=== PATIENT | female | born 1965 | race American Indian/Alaskan Native ===

== ENCOUNTER 2017-06-06 19:46 | Emergency (ER) | payer BC, OTHER ==
[2017-06-06 20:38] VITALS: BP 154/88
--- NOTE | 2017-06-06 20:40 | EDM.PDOC ---
ED HPI GENERAL MEDICAL PROBLEM - General Chief Complaint: ENT Problem Stated Complaint: SORE THROAT, [id number] Time Seen by Provider: 06/06/17 21:00 Source of Information: Reports: Patient History Limitations: Reports: No Limitations - History of Present Illness INITIAL COMMENTS - FREE TEXT/NARRATIVE: c/o sore throat x 3 days, no fever or cough, Spouse being seen so thought she should also. Duration: Day(s): Location: Reports: Other Severity: Mild Throat Pain Score (Numeric/FACES): 5 - Related Data Allergies Allergy/AdvReac Type Severity Reaction Status Date / Time No Known Allergies Allergy Verified 06/06/17 20:27 Home Meds: Home Meds . [No Known Home Meds] 06/06/17 [History] Past Medical History [employer] History: Reports: Other (See Below) Other OB/BYN History: cervical cancer Oncologic (Cancer) History: Reports: Cervix - Past Surgical History Female Surgical History: Reports: Other (See Below) Other Female Surgeries/Procedures: partial hysterectomy Social & Family History - Tobacco Use Smoking Status *Q: Current Every Day Smoker Years of Tobacco use: 10 Packs/Tins Daily: 0.2 Second Hand Smoke Exposure: Yes - Alcohol Use Days Per Week of Alcohol Use: 1 Number of Drinks Per Day: 1 Total Drinks Per Week: 1 - Recreational Drug Use Recreational Drug Use: No ED ROS ENT - Review of Systems Review Of Systems: ROS reveals no pertinent complaints other than HPI. ED EXAM, ENT - Physical Exam Exam: See Below Exam Limited By: No Limitations General Appearance: Alert, No Apparent Distress Eye Exam: Bilateral Eye: EOMI Ears: Normal External Exam, Normal TMs Nose: Normal Inspection Mouth/Throat: Normal Inspection, Normal Gums, Normal Lips, Normal Oropharynx, Normal Teeth, Bleeding Head: Atraumatic Neck: Normal Inspection Respiratory/Chest: No Respiratory Distress GI/Abdominal: Normal Bowel Sounds, Soft, Non-Tender (Female) Exam: Normal External Exam, Normal Speculum Exam Rectal (Female) Exam: Normal Exam, Normal Rectal Tone Back: No: CVA Tenderness (L), Muscle Spasm Course - Vital Signs Last Recorded V/S: Last Vital Signs Temp 98 F 06/06/17 20:27 Pulse 78 06/06/17 20:27 Resp 20 06/06/17 20:27 BP 154/88 H 06/06/17 20:27 Pulse Ox 99 06/06/17 20:27 - Orders/Labs/Meds Orders: Active Orders 24 hr Category Date Time Status CULTURE STREP A CONFIRMATION [] Stat Lab 06/06/17 20:15 Results STREP SCRN A RAPID W CULT CONF [] Stat Lab 06/06/17 20:15 Results Meds: Medications Discontinued Medications Generic Name Dose Route Start Last Admin Trade Name Freq PRN Reason Stop Dose Admin Ketorolac Tromethamine 30 mg 06/06/17 20:53 Toradol IVPUSH 06/06/17 20:54 ONETIME ONE Phenazopyridine HCl 190 mg 06/06/17 20:54 Urinary Pain Relief PO 06/06/17 20:55 ONETIME ONE Departure - Departure Time of Disposition: 20:39 Disposition: Home, Self-Care 01 Condition: Good Clinical Impression: Pharyngitis Qualifiers: Pharyngitis/tonsillitis etiology: unspecified etiology Qualified Code(s): J02.9 - Acute pharyngitis, unspecified - Discharge Information Referrals: Chuck Corbin [Primary Care Provider] - Forms: ED Department Discharge Additional Instructions: increase fluids alternate tylenol and ibuprofen for discomfort - My Orders Last 24 Hours: My Active Orders 06/06/17 20:15 CULTURE STREP A CONFIRMATION [RM] Stat STREP SCRN A RAPID W CULT CONF [] Stat - Assessment/Plan Last 24 Hours: My Active Orders 06/06/17 20:15 CULTURE STREP A CONFIRMATION [RM] Stat STREP SCRN A RAPID W CULT CONF [] Stat
[2017-06-06] MEDS ORDERED: Ketorolac 30 MG/ML SDV IVPUSH ONE (20:53)
[2017-06-06] MEDS ORDERED: Phenazopyridine 95 MG Tab PO ONE (20:54)
== END 2017-06-06 21:01 | disposition home or self-care (01) ==
LOC: DL.ED 19:46
DX: J02.9 Acute pharyngitis, unspecified (principal); F17.210 Nicotine dependence, cigarettes, uncomplicated; Z90.710 Acquired absence of both cervix and uterus; Z85.41 Personal history of malignant neoplasm of cervix uteri
CPT/HCPCS: 87081; 87430; 99283

== ENCOUNTER 2019-11-03 18:01 | Emergency (ER) | payer BC, OTHER ==
[2019-11-03] MEDS ORDERED: Benzonatate 100 MG Cap PO ONE (18:02)
[2019-11-03] MEDS ORDERED: Levofloxacin 500 MG Tab PO ONE (18:02)
[2019-11-03 18:13] VITALS: BP 155/78; PULSE 102
[2019-11-03] MEDS ORDERED: cefTRIAXone 1 GM, Lidocaine 1% 2.1 ML IM ONE ×2 (19:46)
[2019-11-03] MEDS ORDERED: Benzonatate 100 MG Cap ONE (19:53)
[2019-11-03] MEDS ORDERED: Levofloxacin 500 MG Tab ONE (19:53)
--- NOTE | 2019-11-03 19:59 | EDM.PDOC ---
ED HPI GENERAL MEDICAL PROBLEM - General Chief Complaint: General Stated Complaint: ACHY, NOT FEELING GOOD Time Seen by Provider: 11/03/19 19:20 Source of Information: Reports: Patient History Limitations: Reports: No Limitations - History of Present Illness INITIAL COMMENTS - FREE TEXT/NARRATIVE: Cough fever for approximately one week, UTI sx since weekend, frequency urgency. Left flank pain. Hx UTI's in past. No vomiting. No flu vaccine, Lots of family ill with respiratory sx. 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 Musculoskeletal History: Reports: None Neurological History: Reports: None Psychiatric History: Reports: None Endocrine/Metabolic History: Reports: Other (See Below) Other Endocrine/Metabolic History: thyroid problems Hematologic History: Reports: None Immunologic History: Reports: None Oncologic (Cancer) History: Reports: Cervix Dermatologic History: Reports: None - Infectious Disease History Infectious Disease History: Reports: None - Past Surgical History Head Surgeries/Procedures: Reports: None Female Surgical History: Reports: Other (See Below) Other Female Surgeries/Procedures: partial hysterectomy Social & Family History - Family History Family Medical History: Noncontributory - Tobacco Use Smoking Status *Q: Current Every Day Smoker Years of Tobacco use: 20 Packs/Tins Daily: 0.5 - Caffeine Use Caffeine Use: Reports: Coffee - Recreational Drug Use Recreational Drug Use: No ED ROS GENERAL - Review of Systems Review Of Systems: Comprehensive ROS is negative, except as noted in HPI. ED EXAM, GENERAL - Physical Exam Exam: See Below Exam Limited By: No Limitations General Appearance: Alert, Mild Distress Eye Exam: Bilateral Eye: EOMI Ears: Normal External Exam Ear Exam: Bilateral Ear: TM Dull Nose: Normal Inspection Throat/Mouth: Normal Voice, Inflammation Neck: Normal Inspection Respiratory/Chest: No Respiratory Distress, Other (harsh bronchial cough) Cardiovascular: Normal Peripheral Pulses, Regular Rate, Rhythm GI/Abdominal: Normal Bowel Sounds Back Exam: CVA Tenderness (L). No: CVA Tenderness (R) Extremities: Normal Inspection Neurological: Alert, Oriented, Normal Cognition Psychiatric: Normal Affect Skin Exam: Warm, Dry, Intact, Normal Color Course - Vital Signs Last Recorded V/S: Last Vital Signs Temp 98.6 F 11/03/19 18:11 Pulse 102 H 11/03/19 18:11 Resp 22 H 11/03/19 18:11 BP 155/78 H 11/03/19 18:11 Pulse Ox 96 11/03/19 18:11 - Orders/Labs/Meds Orders: Active Orders 24 hr Category Date Time Status CXR [Chest 1V Frontal] [CR] Urgent Exams 11/03/19 19:46 Taken CULTURE URINE [RM] Stat Lab 11/03/19 18:20 Received Labs: Laboratory Tests 11/03/19 Range/Units 18:20 Urine Color Yellow (YELLOW) Urine Appearance Slightly cloudy (CLEAR) Urine pH 6.0 (5.0-9.0) Ur Specific [place] 1.025 (1.005-1.030) Urine Protein Negative (NEGATIVE) Urine Glucose (UA) Negative (NEGATIVE) Urine Ketones Negative (NEGATIVE) Urine Occult Blood Trace-intact H (NEGATIVE) Urine Nitrite Positive H (NEGATIVE) Urine Bilirubin Negative (NEGATIVE) Urine Urobilinogen 1.0 (0.2-1.0) mg/dL Ur Leukocyte Esterase Negative (NEGATIVE) Urine RBC 0-5 /HPF Urine WBC 0-5 (0-5/HPF) /HPF Ur Epithelial Cells Few (NOT SEEN) /HPF Amorphous Sediment Few (NOT SEEN) /HPF Urine Bacteria Moderate H (0-FEW/HPF) /HPF Urine Mucus Rare (NOT SEEN) /LPF Meds: Medications Discontinued Medications Generic Name Dose Route Start Last Admin Trade Name Freq PRN Reason Stop Dose Admin Benzonatate Confirm 11/03/19 19:53 11/03/19 20:23 Tessalon Perles Administered 11/03/19 19:54 Not Given Dose 1,000 mg .ROUTE .STK-MED ONE Ceftriaxone Sodium 1 gm/ 0 gm 11/03/19 19:46 11/03/19 19:58 Lidocaine HCl 2.1 ml IM 11/03/19 19:47 1 inj ONETIME ONE Administration Levofloxacin Confirm 11/03/19 19:53 11/03/19 20:23 Levaquin Administered 11/03/19 19:54 Not Given Dose 1,000 mg .ROUTE .STK-MED ONE Departure - Departure Time of Disposition: 19:56 Disposition: Home, Self-Care 01 Condition: Good Clinical Impression: Bronchitis UTI (urinary tract infection) Qualifiers: Urinary tract infection type: acute cystitis Hematuria presence: with hematuria Qualified Code(s): N30.01 - Acute cystitis with hematuria - Discharge Information *PRESCRIPTION DRUG MONITORING PROGRAM REVIEWED*: No *COPY OF PRESCRIPTION DRUG MONITORING REPORT IN PATIENT EDNA: No Instructions: Acute Bronchitis, Adult, [id number], Urinary Tract Infection, Adult [facility] - Forms: ED Department Discharge Care Plan Goals: levaquin 500mg one daily tessalon 200mg every 8 hours as needed for cough increase fluids robitussin per package instructions humidifier follow up if symptoms worsen Sepsis Event Note - Evaluation Sepsis Screening Result: No Definite Risk - Focused Exam Vital Signs: Vital Signs Temp Pulse Resp BP Pulse Ox 11/03/19 18:11 98.6 F 102 H 22 H 155/78 H 96 Date Exam was Performed: 11/04/19 Time Exam was Performed: 00:14 - My Orders Last 24 Hours: My Active Orders 11/03/19 19:46 CXR [Chest 1V Frontal] [CR] Urgent - Assessment/Plan Last 24 Hours: My Active Orders 11/03/19 19:46 CXR [Chest 1V Frontal] [CR] Urgent
== END 2019-11-03 20:22 | disposition home or self-care (01) ==
LOC: DL.ED 18:01
DX: J40 Bronchitis, not specified as acute or chronic (principal); N30.01 Acute cystitis with hematuria; F17.210 Nicotine dependence, cigarettes, uncomplicated; Z79.899 Other long term (current) drug therapy
CPT/HCPCS: 71045; 81001; 87086; 87088; 87186; 87804; 96372; 99283; J0696; J2001; A9270-GY

== ENCOUNTER 2022-06-30 20:11 | Emergency (ER) | payer BC ==
[2022-06-30] MEDS ORDERED: Phenazopyridine 95 MG Tab PO ONE ×2 (20:12→21:14)
[2022-06-30] MEDS ORDERED: Cephalexin 500 MG Cap PO ONE (20:12)
[2022-06-30 20:48] VITALS: BP 163/107; PULSE 110
[2022-06-30] MEDS ORDERED: cefTRIAXone 1 GM, Lidocaine 1% 2.1 ML IM ONE ×2 (21:09)
[2022-06-30] MEDS ORDERED: Phenazopyridine 95 MG Tab ONE (21:46)
[2022-06-30] MEDS ORDERED: Cephalexin 500 MG Cap ONE (21:47)
== END 2022-06-30 21:58 | disposition home or self-care (01) ==
LOC: DL.ED 20:11
DX: N39.0 Urinary tract infection, site not specified (principal); E05.90 Thyrotoxicosis, unspecified without thyrotoxic crisis or storm; F17.210 Nicotine dependence, cigarettes, uncomplicated; Z79.899 Other long term (current) drug therapy
CPT/HCPCS: 81001; 87086; 87088; 87186; 96372; 99282; 99284; A9270-GY; J0696

== ENCOUNTER 2023-12-08 15:53 | Emergency (ER) | payer BC ==
[2023-12-08 16:16] VITALS: BP 170/96; PULSE 129
[2023-12-08] MEDS: Take Home: Cyclobenzaprine 10 MG Tab, 4 Tab Pack PO ONE (17:15)
[2023-12-08] MEDS: Morphine 2 MG/ML SYRINGE IM ONE (17:17)
== END 2023-12-08 18:09 | disposition home or self-care (01) ==
LOC: DL.ED 15:53
DX: G89.18 Other acute postprocedural pain (principal); M25.552 Pain in left hip; L89.159 Pressure ulcer of sacral region, unspecified stage; F41.9 Anxiety disorder, unspecified; I16.0 Hypertensive urgency; I10 Essential (primary) hypertension; Z96.642 Presence of left artificial hip joint; E03.9 Hypothyroidism, unspecified; Z79.899 Other long term (current) drug therapy; Z90.711 Acquired absence of uterus with remaining cervical stump
CPT/HCPCS: 96372; 99283; 99284; A9270; J2270